=== PATIENT | male | born 1970 ===

== ENCOUNTER 2017-01-10 00:14 | Emergency (ER) | payer SELFPAY ==
[2017-01-10 00:17] VITALS: BP 141/80; PULSE 72; RESP 18; TEMP 97; O2SAT 99
--- NOTE | 2017-01-10 00:54 | ED PDOC ---
HPI: Psych/Substance Abuse Time Seen by Provider: 01/10/17 00:33 Chief Complaint (Nursing): Alcohol Ingestion Chief Complaint (Provider): etoh History Per: Patient, EMS Additional Complaint(s): 45-year-old male presents to emergency department intoxicated. He was found asleep on his stoop. Patient did not have keys to his home and was unable to reach his say he was brought to ER. Patient denies any fall and offers no acute complaints. Past Medical History Reviewed: Historical Data, Nursing Documentation, Vital Signs Vital Signs: Last Vital Signs Temp 97 F L 01/10/17 00:15 Pulse 72 01/10/17 00:15 Resp 18 01/10/17 00:15 BP 141/80 01/10/17 00:15 Pulse Ox 99 01/10/17 00:15 - Medical History PMH: No Chronic Diseases - Family History Family History: States: No Known Family Hx - Living Arrangements Living Arrangements: With Family - Social History Alcohol: Social - Allergies Allergies/Adverse Reactions: Allergies Allergy/AdvReac Type Severity Reaction Status Date / Time No Known Allergies Allergy Verified 01/10/17 00:15 Review of Systems Psych: Positive for: Other (etoh) Physical Exam - Reviewed Nursing Documentation Reviewed: Yes Vital Signs Reviewed: Yes - Physical Exam Appears: Positive for: Well, Non-toxic, No Acute Distress Skin: Negative for: Rash Eye Exam: Positive for: Normal appearance Cardiovascular/Chest: Positive for: Regular Rate, Rhythm Respiratory: Positive for: Normal Breath Sounds Neurologic/Psych: Positive for: Alert, Oriented, Gait (Steady gait) - ECG O2 Sat by Pulse Oximetry: 99 Pulse Ox Interpretation: Normal Medical Decision Making Medical Decision Makin-year-old intoxicated male. Patient is ambulatory with steady gait, he is awake and alert. Patient's arrived at bedside and is willing to take patient home and assume responsibility for him given that he is intoxicated. Patient is stable for discharge with his . Disposition - Clinical Impression Clinical Impression: Alcohol intoxication - Patient ED Disposition Is Patient to be Admitted: No Counseled Patient/Family Regarding: Diagnosis, Need For Followup - Disposition Referrals: [facility] [place] [Outside] Disposition: Routine/Home Disposition Time: 00:54 Condition: STABLE Instructions: Alcohol Intoxication (ED) Forms: [employer] ([place]) ([place])
== END 2017-01-10 01:12 | disposition home or self-care (01) ==
LOC: H.ER 00:14
DX: F10.129 Alcohol abuse with intoxication, unspecified (principal)

== ENCOUNTER 2017-03-26 21:57 | Emergency (ER) | payer SELFPAY ==
[2017-03-26 22:21] VITALS: BP 112/69; PULSE 60; RESP 18; TEMP 98; O2SAT 98
[2017-03-26] MEDS ORDERED: Lidocaine 1% w Epi 1:100,000 Inj IJ STA (22:37)
[2017-03-26] MEDS ORDERED: Lidocaine 2% w Epi 1:100,000 Inj IJ STA (22:38)
--- NOTE | 2017-03-26 23:24 | CT ---
EXAM: CT Head Without Intravenous Contrast CLINICAL HISTORY: 46 years old, male; Injury or trauma; Fall; Initial encounter; Concussion / head injury; Consciousness not specified; Injury details: ? ? ? . ETOH; Additional info: Fall, ETOH, possible loc TECHNIQUE: Axial computed tomography images of the head/brain without intravenous contrast. All CT scans at this facility use one or more dose reduction techniques, viz.: automated exposure control; ma/kV adjustment per patient size (including targeted exams where dose is matched to indication; i.e. head); or iterative reconstruction technique. Coronal and sagittal reformatted images were created and reviewed. COMPARISON: No relevant prior studies available. FINDINGS: Brain: No acute intracranial hemorrhage. No significant white matter disease. No edema. Ventricles: No significant ventriculomegaly. Bones: No acute displaced fracture. Sinuses: Mucoperiosteal thickening within the bilateral ethmoid sinuses. Mastoid air cells: Unremarkable as visualized. No mastoid effusion. IMPRESSION: No acute intracranial hemorrhage, or suspicious mass effect. Inflammatory sinus disease.
--- NOTE | 2017-03-26 23:26 | CT ---
EXAM: CT Cervical Spine Without Intravenous Contrast CLINICAL HISTORY: 46 years old, male; Injury or trauma; Fall; Initial encounter; Concussion /head injury; Injury details: ? ? ? . ETOH; Additional info: Fall, ETOH TECHNIQUE: Axial computed tomography images of the cervical spine without intravenous contrast. All CT scans at this facility use one or more dose reduction techniques, viz.: automated exposure control; ma/kV adjustment per patient size (including targeted exams where dose is matched to indication; i.e. head); or iterative reconstruction technique. Coronal and sagittal reformatted images were created and reviewed. COMPARISON: No relevant prior studies available. FINDINGS: Vertebrae: No acute fracture. Alignment: Preservation of the normal curvature of the cervical spine. Discs/spinal canal/neural foramina: No acute findings. Soft tissues: Symmetric Lung apices: The visualized lung apices are clear. IMPRESSION: No acute fracture.
--- NOTE | 2017-03-26 23:52 | ED PDOC ---
HPI: Head Injury Time Seen by Provider: 03/26/17 22:21 Chief Complaint (Nursing): Abnormal Skin Integrity Past Medical History Vital Signs: Last Vital Signs Temp 98 F 03/26/17 22:19 Pulse 60 03/26/17 22:19 Resp 18 03/26/17 22:19 BP 112/69 03/26/17 22:19 Pulse Ox 98 03/26/17 22:19 - Allergies Allergies/Adverse Reactions: Allergies Allergy/AdvReac Type Severity Reaction Status Date / Time No Known Allergies Allergy Verified 01/10/17 00:15 - ECG O2 Sat by Pulse Oximetry: 98 Procedures - Laceration/Wound Repair Laceration Wound Length (cm): 2 Wound's Depth, Shape: superficial Wound Explored: clean Betadine Prep?: No Anesthesia: 1% Lidocaine Wound Repaired With: Sutures Suture Size/Type: 6:0 Deep Layer Suture Size/Type: chromic Wound Complexity: Simple (#3) Disposition - Clinical Impression Clinical Impression: Chin laceration, Head injury - Patient ED Disposition Is Patient to be Admitted: No - Disposition Disposition Time: 23:54 Condition: GOOD Additional Instructions: Do not get wet for 24 hours. Instructions: Care For Your Absorbable Stitches (ED)
== END 2017-03-27 00:05 | disposition home or self-care (01) ==
LOC: H.ER 21:57
DX: S01.81XA Laceration without foreign body of other part of head, initial encounter (principal)